=== PATIENT | female | born 1995 | race Two or more races ===

== ENCOUNTER 2019-01-08 14:33 | Emergency (ER) | payer OTHER ==
[~2019-01-08] VITALS: Ht 152.4 cm; Wt 65.8 kg
== END 2019-01-08 18:39 | disposition home or self-care (01) ==
LOC: ER 14:33
DX: K80.20 Calculus of gallbladder without cholecystitis without obstruction (principal); R10.11 Right upper quadrant pain

== ENCOUNTER 2020-03-19 08:44 | Emergency (ER) | payer OTHER ==
[~2020-03-19] VITALS: Ht 152.4 cm; Wt 72.6 kg
[2020-03-19] MEDS ORDERED: BETAMETHASONE D15 G2 TOP (13:58)
[2020-03-19] MEDS ORDERED: TESSALON PERLE100 M1 PO (13:59)
[2020-03-19] MEDS ORDERED: MUCINEX DM ER1 EAC1 PO (13:59)
== END 2020-03-19 14:25 | disposition home or self-care (01) ==
LOC: ER 08:44
DX: R21 Rash and other nonspecific skin eruption (principal); Z03.818 Encounter for observation for suspected exposure to other biological agents ruled out

== ENCOUNTER 2022-08-26 22:18 | Emergency (ER) | payer OTHER ==
[~2022-08-26] VITALS: Ht 152.4 cm; Wt 78.0 kg
[~2022-08-26 22:18] MED LIST: BETAMETHASONE D15 G2 TOP; MUCINEX DM ER1 EAC1 PO; TESSALON PERLE100 M1 PO
== END 2022-08-26 23:40 | disposition home or self-care (01) ==
LOC: ER 22:18
DX: G44.89 Other headache syndrome (principal); R07.89 Other chest pain